=== PATIENT | male | born 1985 | race African-American/Black ===

== ENCOUNTER 2018-11-28 19:05 | Emergency (ER) | payer BC, SELFPAY ==
[2018-11-28] MEDS ORDERED: NA CHLORIDE 0.9% 1,000 ML ONE (19:49)
[2018-11-28] MEDS ORDERED: IBUPROFEN 400 MG TAB ONE (19:49)
[2018-11-28] MEDS ORDERED: ONDANSETRON 4 MG/2 ML VIAL ONE (19:50)
[2018-11-28 20:00] LABS: Absolute Lymphocytes (CBC) 0.8 K/uL (0.7-4.9); Absolute Monocytes 0.9 K/uL (0.1-1.3); Absolute Neutrophil 3.7 K/uL (1.8-8.0); Basophils % 0.5 % (0-1.3); Eosinophils % 0.7 % (0-4.4); Hematocrit 41.7 % (39.6-49.0); Lymphocytes % 14.6 % (15.3-44.8); MPV 9.7 fL (7.6-11.3); Monocytes % 16.1 % (3.3-12.3); RBC Red Blood Cell Count 4.49 M/uL (4.33-5.43)
[2018-11-28 20:03] LABS: Protime INR 1.14
[2018-11-28 20:36] LABS: ALT/SGPT 18 U/L (12-78); AST/SGOT 17 U/L (15-37); Albumin 3.7 g/dL (3.4-5.0); Alkaline Phosphatase 87 U/L (45-117); BUN Blood Urea Nitrogen 10 mg/dL (7-18); Bicarbonate 28 mmol/L (21-32); Bilirubin Direct < 0.1 mg/dL (0-0.2); Bilirubin Total 0.5 mg/dL (0.2-1.0); Glucose Level 93 mg/dL (74-106); Lipase 85 U/L (73-393); Potassium 3.4 mmol/L (3.5-5.1); Protein, Total 7.4 g/dL (6.4-8.2); Sodium Level 142 mmol/L (136-145)
[2018-11-28 20:37] LABS: Blood Morphology Comment NOT SEEN (NOT SEEN); Platelet Estimate ADEQ; Urine White Blood Cell Casts OK
[2018-11-28] MEDS ORDERED: ACETAMINOPHEN 500 MG TAB ONE (21:05)
[2018-11-28] MEDS ORDERED: IPRATROPIUM BROM 0.5MG/2.5ML ONE (21:43)
[2018-11-28] MEDS ORDERED: ALBUTEROL 2.5 MG/3 ML NEB SOL ONE (21:43)
[2018-11-28] MEDS ORDERED: predniSONE 20 MG TAB ONE (21:43)
--- NOTE | 2018-11-28 23:18 | EDPHYS ---
Physician Documentation [facility] Name: Tamir Correa Age: 33 yrs Sex: Male : 1985 Arrival Date: 11/28/2018 Time: 19:09 Bed 27 Private MD: None, None ED Physician Guzman Bowman HPI: 11/28 22:05 This 33 yrs old Black Male presents to ER via Ambulatory with complaints of pm1 Vomiting/Diarrhea, Cough, chills. 22:05 The patient presents to the emergency department with vomiting, diarrhea, cough. pm1 22:05 Onset: The symptoms/episode began/occurred this morning. Possible causes: unknown. The pm1 symptoms are aggravated by nothing. The symptoms are alleviated by nothing. Associated signs and symptoms: Pertinent positives: diarrhea, fever, vomiting, Cough. Severity of symptoms: in the emergency department the symptoms are worse. The patient has not experienced similar symptoms in the past. The patient has not recently seen a physician. Historical: - Allergies: 19:33 No Known Allergies; mg2 - Home Meds: 19:33 None [Active]; mg2 - PMHx: 19:33 None; mg2 - PSHx: 19:33 None; mg2 - Immunization history:: Flu vaccine is not up to date. - Social history:: Smoking status: Patient uses tobacco products, 1 pack every 3 days, Patient/guardian denies using alcohol, street drugs, IV drugs. - Ebola Screening: : No symptoms or risks identified at this time. ROS: 22:05 Constitutional: Negative for fever, chills, and weight loss, Eyes: Negative for injury, pm1 pain, redness, and discharge, ENT: Negative for injury, pain, and discharge, Neck: Negative for injury, pain, and swelling. 22:05 Back: Negative for injury and pain, : Negative for injury, bleeding, discharge, and swelling, MS/Extremity: Negative for injury and deformity, Skin: Negative for injury, rash, and discoloration, Neuro: Negative for headache, weakness, numbness, tingling, and seizure. 22:05 Cardiovascular: Positive for chest pain, Negative for edema, orthopnea, palpitations. 22:05 Respiratory: Positive for cough, with yellow sputum. 22:05 Abdomen/GI: Positive for vomiting, diarrhea, Negative for constipation. Exam: 22:05 Constitutional: This is a well developed, well nourished patient who is awake, alert, pm1 and in no acute distress. Head/Face: Normocephalic, atraumatic. Eyes: Pupils equal round and reactive to light, extra-ocular motions intact. Lids and lashes normal. Conjunctiva and sclera are non-icteric and not injected. Cornea within normal limits. Periorbital areas with no swelling, redness, or edema. ENT: Nares patent. No nasal discharge, no septal abnormalities noted. Tympanic membranes are normal and external auditory canals are clear. Oropharynx with no redness, swelling, or masses, exudates, or evidence of obstruction, uvula midline. Mucous membranes moist. Neck: Trachea midline, no thyromegaly or masses palpated, and no cervical lymphadenopathy. Supple, full range of motion without nuchal rigidity, or vertebral point tenderness. No Meningismus. Chest/axilla: Normal chest wall appearance and motion. Nontender with no deformity. No lesions are appreciated. Cardiovascular: Regular rate and rhythm with a normal S1 and S2. No gallops, murmurs, or rubs. Normal PMI, no JVD. No pulse deficits. Abdomen/GI: Soft, non-tender, with normal bowel sounds. No distension or tympany. No guarding or rebound. No evidence of tenderness throughout. 22:05 Back: No spinal tenderness. No costovertebral tenderness. Full range of motion. Skin: Warm, dry with normal turgor. Normal color with no rashes, no lesions, and no evidence of cellulitis. MS/ Extremity: Pulses equal, no cyanosis. Neurovascular intact. Full, normal range of motion. 22:05 Respiratory: the patient does not display signs of respiratory distress, Respirations: normal, Breath sounds: bronchial sounds, that are moderate, are heard diffusely. 22:05 Neuro: Orientation: is normal, Motor: is normal, moves all fours, Sensation: is normal, no obvious gross deficits. Vital Signs: 19:32 BP 119 / 74; Pulse 95; Resp 18; Temp 103.1(O); Pulse Ox 99% on R/A; Weight 89.81 kg; mg2 Height 5 ft. 7 in. (170.18 cm); Pain 10/10; 20:54 BP 120 / 78; Pulse 91; Resp 18; Temp 102.1(O); Pulse Ox 100% on R/A; mg2 22:55 BP 121 / 70; Pulse 89; Resp 18; Temp 99.1(O); Pulse Ox 100% on R/A; Pain 0/10; mg2 11/29 00:11 BP 122 / 87; Pulse 90; Resp 18; Temp 99; Pulse Ox 100% on R/A; Pain 0/10; mg2 11/28 19:32 Body Mass Index 31.01 (89.81 kg, 170.18 cm) mg2 MDM: 11/28 19:21 Patient medically screened. tw4 23:16 Data reviewed: vital signs. Data interpreted: Pulse oximetry: on room air is 100 %. pm1 Interpretation: normal. Counseling: I had a detailed discussion with the patient and/or guardian regarding: the historical points, exam findings, and any diagnostic results supporting the discharge/admit diagnosis, lab results, radiology results, the need for outpatient follow up, to return to the emergency department if symptoms worsen or persist or if there are any questions or concerns that arise at home. 11/28 19:23 Order name: Basic Metabolic Panel; Complete Time: 21:12 [facility] 11/28 19:23 Order name: CBC with Diff; Complete Time: 21:12 [facility] 11/28 19:23 Order name: Creatinine for Radiology; Complete Time: 21:12 [facility] 11/28 19:23 Order name: Hepatic Function; Complete Time: 21:12 [facility] 11/28 19:23 Order name: Lipase; Complete Time: 21:12 [facility] 11/28 19:29 Order name: Troponin (emerg Dept Use Only); Complete Time: 21:12 [facility] 11/28 19:29 Order name: Flu; Complete Time: 21:12 [facility] 11/28 19:29 Order name: Strep; Complete Time: 21:12 [facility] 11/28 19:29 Order name: PT-INR; Complete Time: 21:12 [facility] 11/28 20:03 Order name: CBC Smear Scan; Complete Time: 21:12 [facility] 11/28 20:32 Order name: Throat Culture [facility] 11/28 19:23 Order name: IV Saline Lock; Complete Time: 19:47 [facility] 11/28 19:23 Order name: Labs collected and sent; Complete Time: 19:47 [facility] 11/28 19:29 Order name: EKG - Nurse/Tech; Complete Time: 19:46 mg2 Administered Medications: 19:46 Drug: Motrin 800 mg Route: PO; mg2 20:55 Follow up: Response: No adverse reaction; Temperature is decreased mg2 19:47 Drug: NS 0.9% 1000 ml Route: IV; Rate: 1 bolus; Site: left antecubital; mg2 23:27 Follow up: Response: No adverse reaction; IV Status: Completed infusion mg2 20:55 Drug: Tylenol 1000 mg Route: PO; mg2 23:27 Follow up: Response: No adverse reaction; Temperature is decreased mg2 21:33 Drug: Albuterol 2.5 mg Route: Inhalation; mg2 23:26 Follow up: Response: No adverse reaction; Marked relief of symptoms mg2 21:33 Drug: AtroVENT Aerosol 0.5 mg Route: Inhalation; mg2 23:26 Follow up: Response: No adverse reaction; Marked relief of symptoms mg2 21:33 Drug: predniSONE 60 mg Route: PO; mg2 23:26 Follow up: Response: No adverse reaction; Marked relief of symptoms mg2 Disposition: 11/28/18 23:17 Discharged to Home. Impression: Bronchitis, not specified as acute or chronic, Vomiting, Diarrhea, unspecified. - Condition is Stable. - Discharge Instructions: Acute Bronchitis, Adult, Diarrhea, Adult, How to Use an Inhaler, Cough, Adult, Vomiting, Adult. - Prescriptions for Medrol (Harry) 4 mg Oral Tablets, Dose Pack - take 1 tablet by ORAL route as directed - follow package instructions; 1 packet. Albuterol Sulfate 90 mcg/actuation - inhale 1-2 puff by INHALATION route every 4-6 hours; 1 Inhaler. Guaifenesin AC 10- 100 mg/5 mL Oral Liquid - take 10 milliliter by ORAL route every 4 hours As needed; 240 milliliter. - Medication Reconciliation Form, Thank You Letter, Antibiotic Education, Prescription Opioid Use, Work release form form. - Follow up: Emergency Department; When: As needed; Reason: Worsening of condition. Follow up: Private Physician; When: 2 - 3 days; Reason: Recheck today's complaints, Continuance of care, Re-evaluation by your physician. - Problem is new. - Symptoms have improved. Addendum: 12/01/2018 06:38 Co-signature as Attending Physician, Guzman Bowman MD I agree with the assessment and t w4 plan of care. Signatures: Dispatcher [employer] EDMS Ricardo Shelley, MUSIC TYPOGRAPHER MUSIC TYPOGRAPHER pm1 Guzman Bowman MD MD tw4 Torsten Grant, RN RN mg2 Corrections: (The following items were deleted from the chart) 11/29 00:12 11/28 23:17 11/28/2018 23:17 Discharged to Home. Impression: Bronchitis, not specified mg2 as acute or chronic; Vomiting; Diarrhea, unspecified. Condition is Stable. Forms are Medication Reconciliation Form, Thank You Letter, Antibiotic Education, Prescription Opioid Use. Follow up: Emergency Department; When: As needed; Reason: Worsening of condition. Follow up: Private Physician; When: 2 - 3 days; Reason: Recheck today's complaints, Continuance of care, Re-evaluation by your physician. Problem is new. Symptoms have improved. pm1
--- NOTE | 2018-11-28 23:18 | ER ---
Nurse's Notes [facility] Name: Tamir Correa Age: 33 yrs Sex: Male : 1985 Arrival Date: 11/28/2018 Time: 19:09 Bed 27 Private MD: None, None Diagnosis: Bronchitis, not specified as acute or chronic;Vomiting;Diarrhea, unspecified Presentation: 11/28 19:31 Presenting complaint: Patient states: i have chest pain that radiates to my back since mg2 morning, [id number], [id number] and fever. Transition of care: patient was not received from another setting of care. Onset of symptoms was November 28, 2018. Risk Assessment: Do you want to hurt yourself or someone else? Patient reports no desire to harm self or others. Initial Sepsis Screen: Does the patient meet any 2 criteria? No. Patient's initial sepsis screen is negative. Does the patient have a suspected source of infection? No. Patient's initial sepsis screen is negative. Care prior to arrival: None. 19:31 Method Of Arrival: Ambulatory mg2 19:31 Acuity: SALO 3 mg2 Historical: - Allergies: 19:33 No Known Allergies; mg2 - Home Meds: 19:33 None [Active]; mg2 - PMHx: 19:33 None; mg2 - PSHx: 19:33 None; mg2 - Immunization history:: Flu vaccine is not up to date. - Social history:: Smoking status: Patient uses tobacco products, 1 pack every 3 days, Patient/guardian denies using alcohol, street drugs, IV drugs. - Ebola Screening: : No symptoms or risks identified at this time. Screenin:47 Abuse screen: Denies threats or abuse. Denies injuries from another. Nutritional mg2 screening: No deficits noted. Tuberculosis screening: No symptoms or risk factors identified. Fall Risk IV access (20 points). Assessment: 19:48 General: Appears in no apparent distress. comfortable, Behavior is calm, cooperative. mg2 Pain: Complains of pain in chest Pain radiates to back Pain currently is 5 out of 10 on a pain scale. Quality of pain is described as aching, Pain began gradually, Is intermittent. Neuro: Level of Consciousness is awake, alert, obeys commands, Oriented to person, place, time, situation. Cardiovascular: Capillary refill < 3 seconds Patient's skin is warm and dry. Respiratory: Airway is patent Respiratory effort is even, unlabored, Respiratory pattern is regular, symmetrical. Respiratory: Reports cough that is. GI: Abdomen is flat, non-distended, Reports diarrhea, vomiting, since morning. : No signs and/or symptoms were reported regarding the genitourinary system. EENT: No signs and/or symptoms were reported regarding the EENT system. Derm: Skin is intact, is healthy with good turgor, Skin is pink, warm \T\ dry. normal. Musculoskeletal: Circulation, motion, and sensation intact. Capillary refill < 3 seconds. 22:00 Reassessment: Patient appears in no apparent distress at this time. Patient and/or mg2 family updated on plan of care and expected duration. Pain level reassessed. Patient is alert, oriented x 3, equal unlabored respirations, skin warm/dry/pink. 11/29 00:11 Reassessment: Patient denies pain at this time. Patient states feeling better. Patient mg2 states symptoms have improved. Vital Signs: 11/28 19:32 BP 119 / 74; Pulse 95; Resp 18; Temp 103.1(O); Pulse Ox 99% on R/A; Weight 89.81 kg; mg2 Height 5 ft. 7 in. (170.18 cm); Pain 10/10; 20:54 BP 120 / 78; Pulse 91; Resp 18; Temp 102.1(O); Pulse Ox 100% on R/A; mg2 22:55 BP 121 / 70; Pulse 89; Resp 18; Temp 99.1(O); Pulse Ox 100% on R/A; Pain 0/10; mg2 18 00:11 BP 122 / 87; Pulse 90; Resp 18; Temp 99; Pulse Ox 100% on R/A; Pain 0/10; mg2 11/28 19:32 Body Mass Index 31.01 (89.81 kg, 170.18 cm) mg2 ED Course: 11/28 19:09 Patient arrived in ED. mr 19:10 None, None is Private Physician. mr 19:21 Guzman Bowman MD is Attending Physician. tw4 19:24 Torsten Grant, RN is Primary Nurse. mg2 19:32 Triage completed. mg2 19:34 Arm band placed on. EKG completed in triage. Results shown to MD. EKG completed in mg2 triage. Results shown to MD. 19:47 No provider procedures requiring assistance completed. Inserted saline lock: 20 gauge mg2 in left antecubital area, using aseptic technique. Blood collected. by BETH [employer]. 19:49 Patient has correct armband on for positive identification. security monitor on. Pulse mg2 ox on. NIBP on. Door closed. Warm blanket given. 20:47 Ricardo Shelley NP is PHCP. pm1 11/29 00:11 IV discontinued, intact, bleeding controlled, No redness/swelling at site. Pressure mg2 dressing applied. Administered Medications: 11/28 19:46 Drug: Motrin 800 mg Route: PO; mg2 20:55 Follow up: Response: No adverse reaction; Temperature is decreased mg2 19:47 Drug: NS 0.9% 1000 ml Route: IV; Rate: 1 bolus; Site: left antecubital; mg2 23:27 Follow up: Response: No adverse reaction; IV Status: Completed infusion mg2 20:55 Drug: Tylenol 1000 mg Route: PO; mg2 23:27 Follow up: Response: No adverse reaction; Temperature is decreased mg2 21:33 Drug: Albuterol 2.5 mg Route: Inhalation; mg2 23:26 Follow up: Response: No adverse reaction; Marked relief of symptoms mg2 21:33 Drug: AtroVENT Aerosol 0.5 mg Route: Inhalation; mg2 23:26 Follow up: Response: No adverse reaction; Marked relief of symptoms mg2 21:33 Drug: predniSONE 60 mg Route: PO; mg2 23:26 Follow up: Response: No adverse reaction; Marked relief of symptoms mg2 Outcome: 23:17 Discharge ordered by . pm1 11/29 00:11 Discharged to home ambulatory. mg2 Condition: stable Discharge instructions given to patient, Instructed on discharge instructions, follow up and referral plans. medication usage, Demonstrated understanding of instructions, follow-up care, medications, Prescriptions given X 3. 00:12 Patient left the ED. mg2 Signatures: [employer] mr Ricardo Shelley, LOT TECHNICIAN LOT TECHNICIAN pm1 Guzman Bowman MD MD tw4 Torsten Grant RN RN mg2
--- NOTE | 2018-11-29 14:26 | EKG ---
Test Date: 2018-11-28 Test Time: 19:45:23 Manager Development: MG MEASUREMENT RESULTS: Intervals: Rate: 93 IN: 170 QRSD: 90 QT: 306 QTc: 380 [place]: P: 29 IN: 170 QRS: 29 T: 13 INTERPRETIVE STATEMENTS: Normal sinus rhythm Nonspecific T wave abnormality Abnormal ECG No previous ECG available for comparison Electronically Signed On 11-29-18 14:25:31 CDT by Melo Hood
== END 2018-11-29 00:12 | disposition home or self-care (01) ==
LOC: ER 19:05
DX: J40 Bronchitis, not specified as acute or chronic (principal); R19.7 Diarrhea, unspecified; Z72.0 Tobacco use
CPT/HCPCS: 36415; 80048; 80076; 83690; 84484; 85025; 85610; 87070; 87081; 87804; 93005; 96360; 96361; 99285; J2405; J7030; J7512

== ENCOUNTER 2018-12-01 12:41 | Emergency (ER) | payer SELFPAY ==
[2018-12-01] MEDS ORDERED: ACETAMINOPHEN 500 MG TAB ONE (13:48)
[2018-12-01] MEDS ORDERED: ALBUTEROL 2.5 MG/3 ML NEB SOL ONE (13:48)
--- NOTE | 2018-12-01 13:48 | RAD REPORT ---
EXAM DESCRIPTION: RAD - Chest Single View - 12/01/2018 1:40 pm CLINICAL HISTORY: Fever, chills, cough COMPARISON: 1335 hours TECHNIQUE: AP portable chest image was obtained . FINDINGS: No focal consolidation, mass or volume overload findings. Lung markings are not outside of normal range for portable imaging. Heart and vasculature are normal. No measurable pleural effusion and no pneumothorax. No acute bony abnormality seen. No acute aortic findings suspected. IMPRESSION: No peripheral mass, consolidation or failure. Mild peribronchial thickening consistent with the bronchitis history.
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
== END 2018-12-01 14:35 | disposition home or self-care (01) ==
LOC: ER 12:41
DX: J20.9 Acute bronchitis, unspecified (principal); F17.210 Nicotine dependence, cigarettes, uncomplicated
CPT/HCPCS: 71045; 99284

== ENCOUNTER 2022-12-15 22:29 | Emergency (ER) | payer SELFPAY ==
--- OUTSIDE RECORDS SUMMARY | 2022-12-15 22:32 | XMS REPORT | Continuity of Care Document ---
:1985 Author Organization [facility] t Address [address] [facility] [address] [place] [id number] Care Team Providers Name Role Phone STEVE LAWRENCE Attending Clinician Unavailable MARIANN CAMPO Attending Clinician Unavailable Payers Payer Name Policy Type Policy Number Effective Date Expiration Date S ource Problems This patient has no known problems. Allergies, Adverse Reactions, Alerts This patient has no known allergies or adverse reactions. Social History Social Habit Start Date Stop Date Quantity Comments Source Gender identity [facility] Sexual orientation [facility] Sex Assigned At [birth year] [facility] 00:00:00 00:00:00 Medications This patient has no known medications. Procedures This patient has no known procedures. Plan of Care Planned Activity Planned Date Details Comments Source Future Scheduled Test 2023-04-14 00:00:00 IMM Influenza [facility] Seasonal (>/= 19 yrs) [code = IMM Influenza Seasonal (>/= 19 yrs)] Future Scheduled Test 1985 00:00:00 COVID-19 Vaccine (#1) [facility] [code = COVID-19 Vaccine (#1)] Encounters Start End Encounter Admission Attending Care Care Encounter Source Date/Time Date/Time Type Type Clinicians Facility Department ID 2022-02-23 Inpatient [facility] [id number] [facility] 18:22:19 [id number] [place] 2011-05-27 2011-05-27 Emergency ER [facility] [id number] [place] 17:43:00 18:08:00 STEVE [id number] [facility] 2003-05-27 2003-05-27 Emergency ER MARIANN CAMPO [facility] [id number] [place] 21:10:00 23:15:00 [id number] [facility] Results This patient has no known results.
[2022-12-15 22:43] LABS: Hematocrit 40.8 % (39.6-49.0); Lymphocytes % 30.2 % (15.3-44.8); MCV 90.6 fL (80-100); MPV 8.9 fL (7.6-11.3)
[2022-12-15 22:54] LABS: Protime INR 1.21
[2022-12-15 23:04] LABS: Potassium 3.7 mEq/L (3.5-5.1); Troponin High Sensitivity 3.9 pg/mL (<58.9)
--- NOTE | 2022-12-16 02:57 | ER ---
Nurse's Notes [facility] Name: Tamir Correa Age: 37 yrs Sex: Male : 1985 Arrival Date: 12/15/2022 Time: 22:29 Bed 6 Private MD: Diagnosis: Shortness of breath;Chest pain, unspecified;Other pulmonary embolism without acute cor pulmonale Presentation: 12/15 22:31 Chief complaint: EMS states: Toned out for SOB and chest pain 02/21, states was D/C from 3 the hospital yesterday for bilateral PE and DVTs. Coronavirus screen: Vaccine status: Patient reports being unvaccinated. At this time, the client does not indicate any symptoms associated with coronavirus-19. Ebola Screen: No symptoms or risks identified at this time. Initial Sepsis Screen: Does the patient meet any 2 criteria? No. Patient's initial sepsis screen is negative. Does the patient have a suspected source of infection? No. Patient's initial sepsis screen is negative. Risk Assessment: Do you want to hurt yourself or someone else? Patient reports no desire to harm self or others. Onset of symptoms was December 15, 2022. Care prior to arrival: IV initiated. 18 GA, in the left antecubital area. 22:31 Method Of Arrival: EMS: [facility] 22:31 Acuity: SALO 2 ll3 Triage Assessment: 22:34 General: Appears uncomfortable, Behavior is calm, cooperative. Pain: Complains of pain ll3 in chest Pain radiates to back Pain currently is 8 out of 10 on a pain scale. Is continuous. Neuro: Level of Consciousness is awake, alert, obeys commands, Oriented to person, place, time, situation. Cardiovascular: Reports chest pain, Patient's skin is warm and dry. Chest pain is described as mild, is located in left anterior chest wall radiates back episodes are continuous. Respiratory: Reports shortness of breath at rest Respiratory effort is even, unlabored, Respiratory pattern is regular, symmetrical. Derm: Skin is pink, warm \T\ dry. Historical: - Allergies: 22:34 No Known Allergies; ll3 - Home Meds: 22:34 Eliquis 5 mg oral tablet 2 times per day [Active]; ll3 - PMHx: 22:34 None; ll3 - PSHx: 22:34 None; ll3 - Immunization history:: Client reports having NOT received the Covid vaccine. - Social history:: Smoking status: Patient reports the use of cigarette tobacco products, smokes one-half pack cigarettes per day. Screenin:46 [place] [facility] Fall Risk Assessment (Adult) History of falling in the last 3 months, vc1 including since admission No falls in past 3 months (0 pts) Confusion or Disorientation No (0 pts) Intoxicated or Sedated No (0 pts) Impaired Gait No (0 pts) Mobility Assist Device Used No (0 pt) Altered Elimination No (0 pt) Score/Fall Risk Level 0 - 2 = Low Risk Oriented to surroundings, Maintained a safe environment, Educated pt \T\ family on fall prevention, incl call for assistance when getting out of bed. Abuse screen: Denies threats or abuse. Nutritional screening: No deficits noted. Tuberculosis screening: No symptoms or risk factors identified. Assessment: 22:34 General: See triage assessment. 3 23:38 Reassessment: No changes from previously documented assessment. Patient and/or family vc1 updated on plan of care and expected duration. Pain level reassessed. Patient is alert, oriented x 3, equal unlabored respirations, skin warm/dry/pink. 12/16 02:22 Reassessment: No changes from previously documented assessment. Patient and/or family vc1 updated on plan of care and expected duration. Pain level reassessed. Patient is alert, oriented x 3, equal unlabored respirations, skin warm/dry/pink. Vital Signs: 12/15 22:31 BP 123 / 86; Pulse 76; Resp 19; Temp 97.7(TE); Pulse Ox 97% on R/A; Weight 96.16 kg; ll3 Height 5 ft. 7 in. ; Pain 8/10; 23:30 BP 99 / 66; Pulse 68; Resp 20; Pulse Ox 96% on R/A; vc1 12/16 00:46 BP 102 / 57; Pulse 66; Pulse Ox 95% on R/A; ll3 02:00 BP 132 / 87; Pulse 75; Resp 20; Pulse Ox 97% on R/A; vc1 12/15 22:31 Body Mass Index 33.20 (96.16 kg, 170.18 cm) 3 12/15 22:31 Pain Scale: Adult ll3 ED Course: 12/15 22:31 Patient arrived in ED. ll3 22:31 Dylan Mark MD is Attending Physician. kdr 22:34 Triage completed. ll3 22:37 Arm band placed on Patient placed in an exam room, on a stretcher, on galley boy, ll3 on pulse oximetry. 22:45 Eri Lora, RN is Primary Nurse. vc1 22:45 Maintain EMS IV. Dressing intact. Good blood return noted. Site clean \T\ dry. Gauge \T\ vc 1 site: 18 left AC. 22:46 Patient has correct armband on for positive identification. Bed in low position. Call vc1 light in reach. Client placed on continuous cardiac and pulse oximetry monitoring. NIBP monitoring applied. 22:54 XRAY Chest (1 view) In Process Unspecified. EDMS 06/04 00:10 CT Chest For PE Angio In Process Unspecified. EDMS 03:01 No provider procedures requiring assistance completed. IV discontinued, intact, ll3 bleeding controlled, No redness/swelling at site. Pressure dressing applied. Administered Medications: No medications were administered Medication: 12/15 22:46 VIS not applicable for this client. vc1 Outcome: 12/16 02:56 Discharge ordered by . kdr 03:01 Discharged to home ambulatory, with significant other. ll3 03:01 Condition: stable 03:01 Discharge instructions given to patient, significant other, Instructed on discharge instructions, follow up and referral plans. Demonstrated understanding of instructions, follow-up care. 03:02 Patient left the ED. ll3 Signatures: Dispatcher [employer] EDMD Dylan Mark MD MD [facility] Radha Goode RN RN ll3 Eri Lora, RN RN vc1 Corrections: (The following items were deleted from the chart) 12/15 22:37 22:37 General: See triage assessment. ll3 ll3
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
[2022-12-16 03:18] VITALS: TEMP 98.4
[2022-12-16 03:20] VITALS: BP 116/51; O2SAT 99
--- NOTE | 2022-12-16 14:17 | EKG ---
Test Date: 2022-12-15 Test Time: 22:41:43 Grip Boss: MEDHAT MEASUREMENT RESULTS: Intervals: Rate: 79 PA: 178 QRSD: 100 QT: 368 QTc: 421 [place]: P: 36 PA: 178 QRS: 24 T: 26 INTERPRETIVE STATEMENTS: Normal sinus rhythm Nonspecific T wave abnormality Abnormal ECG Compared to ECG 11/28/2018 19:45:23 No significant changes Electronically Signed On 12-16-22 14:16:31 CDT by Eliud Hyman
--- NOTE | 2022-12-17 11:58 | RAD REPORT ---
EXAM DESCRIPTION: RAD - Chest Single View - 12/15/2022 10:52 pm CLINICAL HISTORY: The patient is 37 years old and is Male; DYSPNEA TECHNIQUE: Frontal view of the chest. COMPARISON: No relevant prior studies available. FINDINGS: Lungs: Unremarkable. No consolidation. Pleural space: Unremarkable. No pneumothorax. Heart: Unremarkable. Mediastinum: Unremarkable. Bones/joints: Unremarkable. IMPRESSION: No acute findings in the chest. Electronically signed by: Joe Ruvalcaba MD 12/15/2022 11:20 PM CDT Due to temporary technical issues with the PACS/Fluency reporting system, reports are being signed by the in house radiologists without review as a courtesy to insure prompt reporting. The interpreting radiologist is fully responsible for the content of the report.
--- NOTE | 2022-12-17 11:59 | RAD REPORT ---
EXAM DESCRIPTION: CT - Chest For Pe Angio - 12/16/2022 5:06 am ADDENDUM #1 THIS REPORT CONTAINS FINDINGS THAT MAY BE CRITICAL TO PATIENT CARE: The findings were verbally discus sed via telephone conference with Dr. Dylan Mark by Dr. Roderick Perry on 12/16/2022 12:30 AM CDT .The results were acknowledged and understood. Electronically signed by: Crista Perry MD 12/16/2022 12:30 AM CDT End of Addendum EXAM DESCRIPTION: CT Angiography Chest With Intravenous Contrast CLINICAL HISTORY: The patient is 37 years old and is Male; DYSPNEA TECHNIQUE: Axial computed tomographic angiography images of the chest with intravenous contrast. S agittal and coronal reformatted images were created and reviewed. This CT exam was performed using one or more of the following dose reduction techniques: automated exposure control, adjustment of t he mA and/or kV according to patient size, and/or use of iterative reconstruction technique. MIP reconstructed images were created and reviewed. COMPARISON: No relevant prior studies available. FINDINGS: PULMONARY ARTERIES: Filling defect within the right main pulmonary artery extending into the right upper, right middle, right lower lobe segmental and subsegmental pulmonary artery branches is present. Filling defect within the left lower lobe pulmonary artery extending into the segmental and subsegmental branches is noted. The remainder the pulmonary vessels are patent. There is no saddl e embolus. AORTA: No acute findings. No thoracic aortic aneurysm. LUNGS: Unremarkable. No mass. No consolidation. PLEURAL SPACE: Unremarkable. No significant effusion. No pneumothorax. HEART: Unremarkable. No cardiomegaly. No significant pericardial effusion. No evidence of R V dysfunction. BONES/JOINTS: No acute fracture. No dislocation. SOFT TISSUES: Unremarkable. LYMPH NODES: Unremarkable. No enlarged lymph nodes. GALLBLADDER AND BILE DUCTS: The gallbladder is contracted. IMPRESSION: Pulmonary thromboemboli as described. No saddle embolus. No findings to suggest right he art strain. Electronically signed by: Crista Perry MD 12/16/2022 12:21 AM CDT Due to temporary technical issues with the PACS/Fluency reporting system, reports are being signed by the in house radiologists without review as a courtesy to insure prompt reporting. The interpreting radiologist is fully responsible for the content of the report.
== END 2022-12-16 03:02 | disposition home or self-care (01) ==
LOC: ER 22:29
DX: I26.99 Other pulmonary embolism without acute cor pulmonale (principal); R07.9 Chest pain, unspecified
CPT/HCPCS: 36415; 71045; 71275; 80048; 83880; 84484; 85025; 85379; 85610; 93005; 99284; Q9967